=== PATIENT | female | born 1990 | race Hispanic/Latino ===

== ENCOUNTER 2016-10-08 21:54 | Emergency (ER) | payer OTHER ==
[2016-10-08 22:04] VITALS: BP 149/103; PULSE 91; RESP 20; TEMP 98; O2SAT 99
[2016-10-08] MEDS ORDERED: Sterile Water 10 ML IV ONE (23:01)
[2016-10-08] MEDS ORDERED: cefTRIAXone (Rocephin) 250 mg Inj ONE (23:01)
[2016-10-08] MEDS ORDERED: cefTRIAXone (Rocephin) 250 mg Inj IM ONE (23:04)
--- NOTE | 2016-10-08 23:10 | ED PDOC ---
HPI: Female Pain Time Seen by Provider: 10/08/16 22:41 Chief Complaint (Nursing): Female Genitourinary History Per: Patient (is here for STD testing. Her contact was seen here with UTI symptoms and was confirmed to have GC. she denies symptoms of vaginal discharge, dysuria, fever, chills, nausea, vomiting or abdominal pain.) History/Exam Limitations: no limitations Past Medical History Reviewed: Historical Data, Nursing Documentation, Vital Signs Vital Signs: Last Vital Signs Temp 98 F 10/08/16 22:02 Pulse 91 H 10/08/16 22:02 Resp 20 10/08/16 22:02 BP 149/103 H 10/08/16 22:02 Pulse Ox 99 10/08/16 22:02 - Medical History Other PMH: PCOS - Surgical History Surgical History: No Surg Hx - Family History Family History: States: No Known Family Hx - Living Arrangements Living Arrangements: With Family - Social History Current smoker - smoking cessation education provided: No - Home Medications Home Medications: Ambulatory Orders Medication Instructions Recorded Ondansetron [Zofran Odt] 1 tab SL Q8H PRN #6 odt 04/28/15 Benzonatate [Tessalon Perle] 100 mg PO Q8 PRN #30 capsule 09/15/16 Naproxen [Naprosyn] 500 mg PO BID PRN #30 tab 09/15/16 - Allergies Allergies/Adverse Reactions: Allergies Allergy/AdvReac Type Severity Reaction Status Date / Time No Known Allergies Allergy Verified 09/15/16 01:08 Review of Systems ROS Statement: Except As Marked, All Systems Reviewed And Found Negative Constitutional: Negative for: Fever, Chills Gastrointestinal: Negative for: Nausea, Vomiting, Abdominal Pain Genitourinary Female: Negative for: Dysuria, Vaginal Discharge Physical Exam - Reviewed Nursing Documentation Reviewed: Yes Vital Signs Reviewed: Yes - Physical Exam Appears: Positive for: Well, Non-toxic, No Acute Distress Head Exam: Positive for: ATRAUMATIC, NORMAL INSPECTION, NORMOCEPHALIC Skin: Positive for: Normal Color, Warm, DRY Eye Exam: Positive for: EOMI, Normal appearance, PERRL ENT: Positive for: Normal ENT Inspection Neck: Positive for: Normal, Painless ROM Cardiovascular/Chest: Positive for: Regular Rate, Rhythm Respiratory: Positive for: CNT, Normal Breath Sounds Gastrointestinal/Abdominal: Positive for: Normal Exam, Bowel Sounds, Soft Back: Positive for: Normal Inspection Extremity: Positive for: Normal ROM Neurologic/Psych: Positive for: Alert, Oriented - ECG O2 Sat by Pulse Oximetry: 99 Disposition - Clinical Impression Clinical Impression: Concern about STD in female without diagnosis - Patient ED Disposition Is Patient to be Admitted: No Doctor Will See Patient In The: Office Counseled Patient/Family Regarding: Diagnosis, Need For Followup - Disposition Disposition: Routine/Home Disposition Time: 23:11 Condition: STABLE Instructions: Sexually Transmitted Diseases (ED)
== END 2016-10-08 23:21 | disposition home or self-care (01) ==
LOC: H.ER 21:54
DX: Z71.1 Person with feared health complaint in whom no diagnosis is made (principal)

== ENCOUNTER 2017-04-17 17:10 | Emergency (ER) | payer OTHER ==
[2017-04-17 17:22] VITALS: BP 169/111; PULSE 98; RESP 16; TEMP 100; O2SAT 99
[2017-04-17] MEDS ORDERED: cefTRIAXone (Rocephin) 250 mg Inj IM STA (18:03)
[2017-04-17] MEDS ORDERED: cefTRIAXone (Rocephin) 250 mg Inj ONE (18:12)
[2017-04-17 18:21] LABS: RBC URINE 2539 /hpf (0-3); URINE BACTERIA OCC (<OCC); URINE BILIRUBIN NEGATIVE (NEGATIVE); URINE BLOOD LARGE (NEGATIVE); URINE COLOR YELLOW (YELLOW); URINE GLUCOSE (UA) NEG (Normal); URINE KETONE NEGATIVE (NEGATIVE); URINE LEUKOCYTE ESTERASE NEG Leu/uL (Negative); URINE PROTEIN 100 mg/dL (NEGATIVE); URINE UROBILINOGEN 0.2-1.0 mg/dL (0.2-1.0); WBC URINE 9 /hpf (0-5)
--- NOTE | 2017-04-17 18:26 | ED PDOC ---
HPI: Female Pain Time Seen by Provider: 04/17/17 17:24 Chief Complaint (Nursing): Female Genitourinary Chief Complaint (Provider): vaginal d/c History Per: Patient History/Exam Limitations: no limitations Additional Complaint(s): 27yo F in Ed with vagina d/c x 1 day-yellow, thick and with foul fishy ordor- admits to unprotected sex last wknd, now with her menstrual. no fever no back pain no nausea or vomiting. admits to being nervous in ER-hence her BP. Past Medical History Reviewed: Historical Data, Nursing Documentation, Vital Signs Vital Signs: Last Vital Signs Temp 100.0 F H 04/17/17 17:19 Pulse 98 H 04/17/17 17:19 Resp 16 04/17/17 17:19 BP 169/111 H 04/17/17 17:19 Pulse Ox 99 04/17/17 17:19 - Medical History PMH: No Chronic Diseases - Family History Family History: States: No Known Family Hx - Home Medications Home Medications: Ambulatory Orders Medication Instructions Recorded Ondansetron [Zofran Odt] 1 tab SL Q8H PRN #6 odt 04/28/15 Benzonatate [Tessalon Perle] 100 mg PO Q8 PRN #30 capsule 09/15/16 Naproxen [Naprosyn] 500 mg PO BID PRN #30 tab 09/15/16 Norethindrone [Kiki] 1 tab PO DAILY 12/13/16 metroNIDAZOLE [Flagyl] 500 mg PO BID #14 tab 04/17/17 - Allergies Allergies/Adverse Reactions: Allergies Allergy/AdvReac Type Severity Reaction Status Date / Time naproxen [From Aleve] Allergy RASH Verified 12/13/16 18:29 Review of Systems ROS Statement: Except As Marked, All Systems Reviewed And Found Negative Constitutional: Negative for: Fever, Chills Genitourinary Female: Positive for: Vaginal Discharge, Vaginal Bleeding Physical Exam - Reviewed Nursing Documentation Reviewed: Yes Vital Signs Reviewed: Yes - Physical Exam Appears: Positive for: Well, Non-toxic, No Acute Distress Skin: Positive for: Normal Color, Warm Eye Exam: Positive for: EOMI, Normal appearance, PERRL Cardiovascular/Chest: Positive for: Regular Rate, Rhythm Respiratory: Positive for: Normal Breath Sounds Gastrointestinal/Abdominal: Positive for: Normal Exam, Bowel Sounds, Soft. Negative for: Tenderness Pelvic Exam: Positive for: Other (does not want to have a pelvic exam performed today. ) Back: Positive for: Normal Inspection Extremity: Positive for: Normal ROM Neurologic/Psych: Positive for: Alert, Oriented - ECG O2 Sat by Pulse Oximetry: 99 - Progress ED Course And Treament: Orders Category Date Time Status UPreg [ED Urine (POC)] Stat ED Care 04/17/17 17:55 Ordered CHLAMYDIA/GC RNA,TMA Stat Lab 04/17/17 17:55 Ordered Azithromycin [Zithromax] Med 04/17/17 18:12 Discontinued 1,000 mg .ROUTE .STK-MED ONE Azithromycin [Zithromax] Med 04/17/17 18:03 Discontinued 1,000 mg PO ONCE ONE cefTRIAXone [Rocephin] Med 04/17/17 18:12 Discontinued 250 mg .ROUTE .STK-MED ONE cefTRIAXone [Rocephin] Med 04/17/17 18:03 Discontinued 250 mg IM STAT STA GENITAL CULTURE Stat Micro 04/17/17 17:55 Ordered URINE [HCG,QUALITATIVE URINE] Stat URINALYSIS 04/17/17 18:09 Ordered URINALYSIS Stat URINALYSIS 04/17/17 17:36 Received Medical Decision Making Medical Decision Making: Pt opts to get treated emprically in ED and to have f.u with obgyn at later time. will be treated for BV as well. pt udnerstadns risk she assumes-and will take caution Disposition - Clinical Impression Clinical Impression: Concern about STD in female without diagnosis - Patient ED Disposition Is Patient to be Admitted: No Counseled Patient/Family Regarding: Studies Performed, Diagnosis, Need For Followup, Rx Given - Disposition [facility] Disposition: Routine/Home Disposition Time: 18:28 Condition: FAIR Prescriptions: metroNIDAZOLE [Flagyl] 500 mg PO BID #14 tab Instructions: Vaginal Discharge (ED), Sexually Transmitted Diseases (ED) Forms: [employer] ([place])
== END 2017-04-17 19:06 | disposition home or self-care (01) ==
LOC: H.ER 17:10
DX: N89.8 Other specified noninflammatory disorders of vagina (principal)
CPT/HCPCS: 81003; 84703; 87491; 87591; 96372; 99282; J0696